=== PATIENT | female | born 1960 | race Caucasian/White ===

== ENCOUNTER 2023-07-23 16:44 | Emergency (ER) | payer MEDICAID, OTHER ==
[~2023-07-23] VITALS: Ht 152.4 cm; Wt 82.0 kg
[~2023-07-23 16:44] MED LIST: AMLO10TA4 PO; ATEN100T PO; ENAL-77 PO; FURO40TA5 PO; GEMF600T90 PO; INSULIN; PRAV40TA58 PO; TERA1CAP53 PO
[2023-07-23 16:53] VITALS: O2SAT 98
[2023-07-23] MEDS ORDERED: ACETAMINOPHEN 325MG TABLET PO STA (17:17)
[2023-07-23] MEDS ORDERED: ONDANSETRON HCL 4MG/2ML INJ IV STA (17:17)
[2023-07-23] MEDS ORDERED: MECLIZINE 25MG TABLET PO ONE (17:30)
[2023-07-23 18:15] LABS: BASOPHILS % 0.5 % (0.0-2.0); EOSINOPHILS % 2.3 % (0.0-5.0); HEMATOCRIT. 23.9 % (36.0-48.0); HEMOGLOBIN. 7.8 g/dL (12.0-16.0); LYMPHOCYTES % 13.7 % (20.0-50.0); MEAN CORPUSCULAR HEMOGLOBIN 31.6 pg (28.0-32.0); MEAN CORPUSCULAR HGB CONC 32.8 g/dL (31.0-37.0); MEAN CORPUSCULAR VOLUME 96.4 fL (81.0-99.0); MEAN PLATELET VOLUME 8.7 fl (7.4-10.4); MONOCYTES % 10.8 % (2.0-8.0); NEUTROPHILS % 72.7 % (40.0-76.0); PLATELET 118 x1000/uL (130-400); RED BLOOD CELL COUNT 2.48 mill/uL (4.2-5.4); WHITE BLOOD COUNT 4.5 x1000/uL (4.5-11.0)
[2023-07-23 18:24] LABS: CHLORIDE 98 mEq/L (98-107); INDEX HEMOLYSI 1 (1-3); INDEX ICTERIC 1 (1-4); INDEX LIPEMIC 1 (1-3); POTASSIUM 3.4 mEq/L (3.5-5.1); SODIUM 133 mEq/L (136-145)
[2023-07-23 18:36] LABS: ALANINE AMINOTRANSFERASE 12 IU/L (13-61); ALBUMIN 3.5 g/dL (3.4-5.0); ASPARTATE AMINOTRANSFERASE 8 IU/L (15-37); BILIRUBIN TOTAL 0.9 mg/dL (0.1-1.0); CALCIUM 9.5 mg/dL (8.5-10.1); CARBON DIOXIDE 29 mEq/L (21-32); GLUCOSE 174 mg/dL (70-105); PROTEIN TOTAL 6.6 g/dL (6.0-8.3); TROPONIN I HIGH SENSITIVITY 32 ng/L (<54); UREA NITROGEN BLOOD 26 mg/dL (7-21)
[2023-07-23 23:39] VITALS: BP 165/49; PULSE 55; RESP 12; TEMP 98.4
== END 2023-07-24 00:09 | disposition short-term general hospital (02) ==
LOC: ER 16:44
DX: R42 Dizziness and giddiness (principal); R51.9 Headache, unspecified; R07.89 Other chest pain; I10 Essential (primary) hypertension; Z99.2 Dependence on renal dialysis; E78.00 Pure hypercholesterolemia, unspecified; Z79.899 Other long term (current) drug therapy
CPT/HCPCS: 80053; 82962; 85025; 84484; 36415; 71045; 70450; 93005; 96374; 99285; J8597; J2405; Z7610

== ENCOUNTER 2024-03-31 12:47 | Emergency (ER) | payer MEDICAID ==
[~2024-03-31] VITALS: Ht 157.5 cm; Wt 68.5 kg
[~2024-03-31 12:47] MED LIST changes: +ALBU2.5V13 INH; -AMLO10TA4 PO; -ATEN100T PO; -ENAL-77 PO; -FURO40TA5 PO; +LANTUSUD SUBCUT; +NIFE-32 PO; +P20 PO
[2024-03-31 12:50] VITALS: O2SAT 97
[2024-03-31] MEDS ORDERED: KETOROLAC 30MG/ML VIAL IV STA (12:52)
[2024-03-31 13:50] LABS: CHLORIDE 99 mEq/L (98-107); POTASSIUM 5.2 mEq/L (3.5-5.1); SODIUM 134 mEq/L (136-145)
[2024-03-31 13:51] LABS: BASOPHILS % 0.7 % (0.0-2.0); CALCIUM 8.2 mg/dL (8.7-10.4); CARBON DIOXIDE 27 mEq/L (21-32); EOSINOPHILS % 1.3 % (0.0-5.0); HEMATOCRIT. 31.4 % (36.0-48.0); HEMOGLOBIN. 9.9 g/dL (12.0-16.0); LYMPHOCYTES % 9.6 % (20.0-50.0); MEAN CORPUSCULAR HGB CONC 31.4 g/dL (31.0-37.0); MEAN CORPUSCULAR VOLUME 95.3 fL (81.0-99.0); MEAN PLATELET VOLUME 8.4 fl (7.4-10.4); MONOCYTES % 8.9 % (2.0-8.0); NEUTROPHILS % 79.5 % (40.0-76.0); PLATELET 79 x1000/uL (130-400); RED CELL DISTRIBUTION WIDTH 20.2 % (11.6-14.6); WHITE BLOOD COUNT 4.4 x1000/uL (4.5-11.0)
[2024-03-31 13:56] LABS: CREATININE 4.8 mg/dL (0.6-1.0); GLUCOSE 220 mg/dL (70-105); UREA NITROGEN BLOOD 36 mg/dL (9-23)
[2024-03-31 13:57] LABS: TROPONIN I HIGH SENSITIVITY 23 ng/L (3.0-34)
[2024-03-31 13:58] LABS: PARTIAL THROMBOPLASTIN TIME 28.9 sec (23.4-31.0); PROTHROMBIN TIME 11.4 sec (9.6-11.0)
[2024-03-31] MEDS: IOHEXOL-350 100 ML BOTTLE ONE (14:15)
[2024-03-31] MEDS: HYDROCODONE/ACETAMINOPHEN 5/325MG TABLET PO ONE (15:01)
[2024-03-31] MEDS: KETOROLAC 30MG/ML VIAL IV NR (15:01)
[2024-03-31 16:14] LABS: TROPONIN I HIGH SENSITIVITY 21 ng/L (3.0-34)
[2024-03-31] MEDS: LIDOCAINE 5% PATCH TOP SCH (17:04)
[2024-03-31] MEDS: MORPHINE SULFATE 4 MG/ML INJ (FOR IV/IM USE) IV ONE (17:04)
[2024-03-31 17:05] VITALS: BP 173/77; PULSE 67; RESP 18; TEMP 97.9
== END 2024-03-31 18:09 | disposition short-term general hospital (02) ==
LOC: ER 12:54 → EDBEDREQTM 15:20 → EDBEDREQ 15:20 → CANBEDREQ 18:00 → ER 18:09
DX: S22.31XA Fracture of one rib, right side, initial encounter for closed fracture (principal); R55 Syncope and collapse; J90 Pleural effusion, not elsewhere classified; X58.XXXA Exposure to other specified factors, initial encounter; Y93.89 Activity, other specified; Y92.89 Other specified places as the place of occurrence of the external cause; Y99.8 Other external cause status; I12.0 Hypertensive chronic kidney disease with stage 5 chronic kidney disease or end stage renal disease; E11.22 Type 2 diabetes mellitus with diabetic chronic kidney disease; N18.6 End stage renal disease; Z99.2 Dependence on renal dialysis
CPT/HCPCS: 99291; 70450; 96374; 96375; 80048; 83880; 85025; 85610; 85730; 86850; 86900; 86901; 84484; 36415; 71045; 72170; 72131; 93005; Q9967; J1885; J2270

== ENCOUNTER 2024-08-23 22:14 | Emergency (ER) | payer MEDICAID, OTHER ==
[~2024-08-23] VITALS: Ht 152.4 cm; Wt 81.0 kg
[~2024-08-23 22:14] MED LIST changes: +BUPR75TA8 PO; -P20 PO; +PRED10TA PO; +PREG75CA PO; +PROT40 MT
[2024-08-23 22:18] VITALS: O2SAT 96
[2024-08-23 23:52] LABS: BASOPHILS % 0.8 % (0.0-2.0); DIFFERENTIAL COMMENT 0; EOSINOPHILS % 2.9 % (0.0-5.0); HEMOGLOBIN. 7.8 g/dL (12.0-16.0); LYMPHOCYTES % 13.3 % (20.0-50.0); MEAN CORPUSCULAR HEMOGLOBIN 33.2 pg (28.0-32.0); MEAN CORPUSCULAR HGB CONC 32.4 g/dL (31.0-37.0); MEAN CORPUSCULAR VOLUME 102.4 fL (81.0-99.0); MEAN PLATELET VOLUME 8.2 fl (7.4-10.4); MONOCYTES % 14.4 % (2.0-8.0); NEUTROPHILS % 68.6 % (40.0-76.0); PLATELET 126 x1000/uL (130-400); RED BLOOD CELL COUNT 2.35 mill/uL (4.2-5.4); RED CELL DISTRIBUTION WIDTH 16.7 % (11.6-14.6); WHITE BLOOD COUNT 5.2 x1000/uL (4.5-11.0)
[2024-08-23 23:54] VITALS: TEMP 36.72516
[2024-08-23 23:59] LABS: POTASSIUM 4.7 mEq/L (3.5-5.1)
[2024-08-24 00:01] LABS: CALCIUM 8.1 mg/dL (8.7-10.4)
[2024-08-24 00:10] LABS: CREATININE 6.6 mg/dL (0.6-1.0)
[2024-08-24] MEDS: HYDROCODONE/ACETAMINOPHEN 5/325MG TABLET ONE (02:50)
[2024-08-24] MEDS ORDERED: HYDROCODONE/ACETAMINOPHEN 5/325MG TABLET PO NR (04:30)
[2024-08-24 04:35] VITALS: BP 165/62; PULSE 84; RESP 19; O2SAT 100
== END 2024-08-24 08:53 ==
LOC: ER 22:14
DX: D64.9 Anemia, unspecified (principal); I12.0 Hypertensive chronic kidney disease with stage 5 chronic kidney disease or end stage renal disease; E11.22 Type 2 diabetes mellitus with diabetic chronic kidney disease; N18.6 End stage renal disease; N28.9 Disorder of kidney and ureter, unspecified; Z79.899 Other long term (current) drug therapy
CPT/HCPCS: 80048; 85025; 86850; 86900; 86901; 36415; 93005; 99284; Z7610

== ENCOUNTER 2024-10-18 09:14 | Emergency (ER) | payer MEDICAID, OTHER ==
[~2024-10-18] VITALS: Ht 154.9 cm; Wt 75.0 kg
[2024-10-18 09:24] VITALS: O2SAT 95
[2024-10-18] MEDS: ACETAMINOPHEN 325MG TABLET PO ONE (09:45)
[2024-10-18] MEDS: NITROGLYCERIN 0.1MG/HR PATCH TOP ONE (09:45)
[2024-10-18] MEDS: HYDRALAZINE 20MG/ML VIAL IV ONE (09:45)
[2024-10-18 10:27] LABS: EOSINOPHILS % 3.4 % (0.0-5.0); HEMATOCRIT. 32.6 % (36.0-48.0); HEMOGLOBIN. 10.1 g/dL (12.0-16.0); LYMPHOCYTES % 14.6 % (20.0-50.0); MEAN CORPUSCULAR HEMOGLOBIN 30.9 pg (28.0-32.0); MEAN CORPUSCULAR VOLUME 99.8 fL (81.0-99.0); MEAN PLATELET VOLUME 8.6 fl (7.4-10.4); MONOCYTES % 9.3 % (2.0-8.0); NEUTROPHILS % 71.7 % (40.0-76.0); PLATELET 86 x1000/uL (130-400); RED BLOOD CELL COUNT 3.27 mill/uL (4.2-5.4); RED CELL DISTRIBUTION WIDTH 17.6 % (11.6-14.6); WHITE BLOOD COUNT 3.1 x1000/uL (4.5-11.0)
[2024-10-18 10:31] LABS: CHLORIDE 100 mEq/L (98-107); POTASSIUM 3.8 mEq/L (3.5-5.1); SODIUM 135 mEq/L (136-145)
[2024-10-18 10:32] LABS: CALCIUM 9.4 mg/dL (8.7-10.4); CARBON DIOXIDE 29 mEq/L (21-32)
[2024-10-18 10:37] LABS: GLUCOSE 141 mg/dL (70-105); UREA NITROGEN BLOOD 19 mg/dL (9-23)
[2024-10-18 10:39] LABS: TROPONIN I HIGH SENSITIVITY 24 ng/L (3.0-34)
[2024-10-18 10:48] LABS: CREATININE 3.1 mg/dL (0.6-1.0)
[2024-10-18 11:30] LABS: DIFFERENTIAL COMMENT 1
[2024-10-18 12:52] LABS: TROPONIN I HIGH SENSITIVITY 23 ng/L (3.0-34)
[2024-10-18 13:30] VITALS: BP 162/63; PULSE 74; RESP 13; TEMP 36.78072; O2SAT 95
== END 2024-10-18 14:00 | disposition short-term general hospital (02) ==
LOC: ER 09:22 → EDBEDREQ 10:00 → CANBEDREQ 12:11 → ER 14:00
DX: I12.0 Hypertensive chronic kidney disease with stage 5 chronic kidney disease or end stage renal disease (principal); N18.6 End stage renal disease; F32.A Depression, unspecified; Z79.899 Other long term (current) drug therapy; Z98.890 Other specified postprocedural states
CPT/HCPCS: 36415; 71045; 80048; 83880; 84484; 85025; 93005; 99285